=== PATIENT | female | born 1985 | race Caucasian/White ===

== ENCOUNTER 2017-06-20 19:12 | Emergency (ER) | payer SELFPAY ==
--- NOTE | 2017-06-20 20:14 | XRAY Preliminary Report ---
Exam: XR Chest 2 View PA/LAT IMPRESSION: Normal 2-view chest radiography. [facility] SITE ID: [id number]
[2017-06-20] MEDS ORDERED: KETOROLAC 60 MG/2 ML VIAL IM STA (20:34)
[2017-06-20] MEDS ORDERED: DEXAMETHASONE 10 MG/ML VIAL PO STA (20:35)
[2017-06-20] MEDS ORDERED: ALBUTEROL NEB 2.5 MG/3 ML INH STA (20:35)
--- NOTE | 2017-06-20 20:40 | ED Physician Documentation ---
History of Present Illness - Stated complaint Stated Complaint: CHEST PX/FEVER - Chief complaint Chief Complaint: General - History obtained from History obtained from: Patient - History of Present Illness Timing: How many days ago (3) Pain level max: 5 Pain level now: 5 Improved by: nothing Worsened by: nothing - Additonal information Additional information: Patient is a 32-year-old female who presents to the emergency department with a complaint of subjective fever at home and a feeling of tightness in her chest. No rhinorrhea, no congestion, no coughing. No vomiting. No diarrhea. No abdominal pain. Has not taken anything at home. 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 - Present Medications Home Medications: Ambulatory Orders Medication Instructions Recorded Confirmed Albuterol Sulf [Ventolin Hfa 2 puffs INH Q4HR PRN #1 inhaler 06/20/17 Inhaler] Ondansetron HCl [Zofran] 06/20/17 - Allergies Allergies/Adverse Reactions: Allergies Allergy/AdvReac Type Severity Reaction Status Date / Time codeine AdvReac Nausea Verified 06/20/17 19:24 morphine AdvReac Dizziness Verified 06/20/17 19:24 - Social History Does the pt smoke?: No Smoking Status: Never smoker Does the pt drink ETOH?: No Does the pt have substance abuse?: No - Immunizations Immunizations are current?: Yes - POLST Patient has POLST: No PD ED PE NORMAL - Vitals Vital signs reviewed: Yes - General General: Alert and oriented X 3, No acute distress, Well developed/nourished - HEENT HEENT: Atraumatic, PERRL, Ears normal, Moist mucous membranes, Other (Mild posterior oropharyngeal erythema without tonsillar exudates. Uvula midline. No trismus.) - Neck Neck: Supple, no meningeal sign, No adenopathy - Cardiac Cardiac: RRR, No murmur, No gallop, No rub, Strong equal pulses - Respiratory Respiratory: No respiratory distress, Other (Mildly diminished breath sounds bilaterally) - Abdomen Abdomen: Soft, Non tender, Non distended - Back Back: No CVA TTP, No spinal TTP - Derm Derm: Warm and dry, No rash - Neuro Neuro: Alert and oriented X 3 - Psych Psych: Normal mood, Normal affect Results - Vitals Vitals: Vital Signs - 24 hr 06/20/17 06/20/17 06/20/17 19:21 20:26 20:50 Temperature 36.4 C L 36.4 C L Heart Rate 112 H 86 86 Respiratory 20 14 16 Rate Blood Pressure 118/71 112/74 O2 Saturation 99 95 06/20/17 21:35 Temperature 36.5 C Heart Rate 85 Respiratory 13 Rate Blood Pressure 121/72 O2 Saturation 96 Oxygen O2 Source Room air - EKG (time done) 2019 Rate: Rate (enter#) (96) Rhythm: NSR Hatley: Normal Intervals: Normal IN QRS: Normal Ischemia: Non specific changes - Labs Labs: Laboratory Tests 06/20/17 20:52 Group A Strep Rapid Negative - Rads (name of study) cxr Radiology: Prelim report reviewed, EMP read contemporaneously, See rad report ( normal) PD MEDICAL DECISION MAKING - ED course Complexity details: reviewed results, re-evaluated patient, considered differential, d/w patient ED course: Patient is a 32-year-old female who presents to the emergency department with fever and chest tightness. Normal EKG. Normal x-ray. No evidence of pericarditis, myocarditis. Normal rapid strep. Did have a mild sore throat and mild erythema on exam. She also feels better after nebulizer treatment and dexamethasone. We will trial her on inhalers for home and follow-up with her doctor for further evaluation and care. Patient counseled regarding signs and symptoms for which I believe and urgent re-evaluation would be necessary. Patient with good understanding of and agreement to plan and is comfortable going home at this time This document was made in part using voice recognition software. While efforts are made to proofread this document, sound alike and grammatical errors may occur. Departure - Departure Disposition: 01 Home, Self Care Clinical Impression: Viral syndrome Condition: Good Instructions: ED Viral Syndrome Follow-Up: Young,Bev L, PA-C [Primary Care Provider] - Within 1 week Prescriptions: Albuterol Sulf [Ventolin Hfa Inhaler] 2 puffs INH Q4HR PRN #1 inhaler PRN Reason: Wheezing Comments: Return if you worsen. Drink plenty of fluids and rest. Discharge Date/Time: 06/20/17 21:39
--- NOTE | 2017-06-20 20:44 | XRAY Report ---
EXAM: CHEST RADIOGRAPHY EXAM DATE: 06/20/2017 07:49 p.m. CLINICAL HISTORY: Fever, chest pain. COMPARISON: None. TECHNIQUE: 2 views. FINDINGS: Lungs/Pleura: No focal opacities evident. No pleural effusion. No pneumothorax. Normal volumes. Mediastinum: Heart and mediastinal contours are unremarkable. Other: None. IMPRESSION: Normal 2-view chest radiography. [facility] Referring Provider Line: [phone] SITE ID: [id number]
[2017-06-20] MEDS ORDERED: ALBUTEROL NEB 2.5 MG/3 ML INH ONE (20:45)
[2017-06-20] MEDS ORDERED: CHERRY SYRUP 10 ML UDC PO ONE (20:46)
[2017-06-20] MEDS ORDERED: KETOROLAC 60 MG/2 ML VIAL ONE (20:46)
[2017-06-20] MEDS ORDERED: DEXAMETHASONE 10 MG/ML VIAL ONE (20:46)
[2017-06-20] MEDS ORDERED: ACETAMINOPHEN 325 MG TABLET PO STA (20:59)
[2017-06-20] MEDS ORDERED: ONDANSETRON ODT 4 MG TABLET TL STA (21:00)
[2017-06-20] MEDS ORDERED: ACETAMINOPHEN 325 MG TABLET PO ONE (21:07)
[2017-06-20] MEDS ORDERED: ONDANSETRON ODT 4 MG TABLET ONE (21:07)
[2017-06-20 21:12] LABS: RAPID STREP SCREEN REAGENT QC YELLOW (YELLOW)
[2017-06-20 21:36] VITALS: BP 121/72
== END 2017-06-20 21:39 | disposition home or self-care (01) ==
LOC: ED 19:12
DX: B34.9 Viral infection, unspecified (principal)
CPT/HCPCS: 71020; 87070; 87430; 93005; 94640; 96372; 99283; A9270; J7613; Q0162

== ENCOUNTER 2017-11-06 22:38 | Emergency (ER) | payer SELFPAY ==
[2017-11-06 22:51] VITALS: BP 149/99
[2017-11-06] MEDS ORDERED: SILVER SULFADIAZINE CREAM 25 GM TUBE TOP STA (23:31)
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
[2017-11-06] MEDS ORDERED: ONDANSETRON ODT 4 MG Prepack 2 TL STA (23:40)
[2017-11-06] MEDS ORDERED: oxyCODONE/ACET 5/325 Prepack 4 PO STA (23:40)
== END 2017-11-07 00:05 | disposition home or self-care (01) ==
LOC: ED 22:38
DX: T23.152A Burn of first degree of left palm, initial encounter (principal); T31.0 Burns involving less than 10% of body surface; X19.XXXA Contact with other heat and hot substances, initial encounter
CPT/HCPCS: 99282; 99283; A9270

== ENCOUNTER 2018-04-04 22:54 | Emergency (ER) | payer SELFPAY ==
[2018-04-04 23:07] VITALS: BP 148/88
--- NOTE | 2018-04-04 23:16 | ED Physician Documentation ---
PD HPI LOWER EXT INJURY - Stated complaint Stated Complaint: LT LEG PX - Chief complaint Chief Complaint: Ext Problem - History obtained from History obtained from: Patient - History of Present Illness PD HPI LOW EXT INJURY LOCATION: Left, Lower leg, Ankle Where injury occurred: Home Timing - onset: Today Timing - details: Gradual onset Similar symptoms before: Has not had sx before Recently seen: Not recently seen - Additional information Additional information: patient is a 33 year old female with no significant past medical history who is presenting to the emergency department for bumps on the front of her leg, just above her ankle. Patient states that she wanted to make sure it was not a blood clot. Patient denies an trauma, shortness of breath or chest pain. 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 - Present Medications Home Medications: Ambulatory Orders Medication Instructions Recorded Confirmed No Known Home Medications [No 04/04/18 04/04/18 Known Home Medications] - Allergies Allergies/Adverse Reactions: Allergies Allergy/AdvReac Type Severity Reaction Status Date / Time codeine AdvReac Nausea Verified 04/04/18 23:08 morphine AdvReac Dizziness Verified 04/04/18 23:08 - Social History Does the pt smoke?: No Smoking Status: Never smoker Does the pt drink ETOH?: No Does the pt have substance abuse?: No - Immunizations Immunizations are current?: Yes - POLST Patient has POLST: No PD ED PE NORMAL - Vitals Vital signs reviewed: Yes - General General: Alert and oriented X 3, No acute distress, Well developed/nourished - HEENT HEENT: Atraumatic - Neck Neck: No JVD - Cardiac Cardiac: RRR - Respiratory Respiratory: No respiratory distress - Abdomen Abdomen: Non distended - Derm Derm: Normal color, No rash - Neuro Neuro: Alert and oriented X 3 Eye Opening: Spontaneous - Psych Psych: Normal mood PD ED PE EXPANDED - Extremities Extremities: Left leg (non mobile nodules on distal anterior leg), Pedal Pulses Present. No: Pedal edema bilateral, Right calf TTP/cord, Left calf TTP/cord Results - Vitals Vitals: Vital Signs - 24 hr 04/04/18 22:56 Temperature 36.9 C Heart Rate 103 H Respiratory 18 Rate Blood Pressure 148/88 H O2 Saturation 100 Oxygen O2 Source Room air PD MEDICAL DECISION MAKING - ED course Complexity details: reviewed old records, considered differential, d/w patient ED course: Patient was seen and examined at bedside. patient was well appearing and in no distress. patients nodules were viewed under ultrasound. they were non vascular. there was no sign of infection. patient's original tachycardia resolved. patient required no testing at this time and was stable for discharge with outpatient follow up. - Sepsis Event Vital Signs: Vital Signs - 24 hr 04/04/18 22:56 Temperature 36.9 C Heart Rate 103 H Respiratory 18 Rate Blood Pressure 148/88 H O2 Saturation 100 Oxygen O2 Source Room air Departure - Departure Disposition: 01 Home, Self Care Clinical Impression: Cyst Condition: Good Instructions: Leg Low Back Pain Poss Causes Follow-Up: primary,care provider [Other] - Within 1 week Comments: Your ultrasound today was well appearing. the cystic regions have no blood flow and appear benign in nature. You should monitor them for the next few days. You should follow up with your doctor next week if the symptoms persist. You may return to the emergency department at any time for new, worsening or uncontrollable symptoms. Discharge Date/Time: 04/04/18 23:22
== END 2018-04-04 23:22 | disposition home or self-care (01) ==
LOC: ED 22:54
DX: L72.9 Follicular cyst of the skin and subcutaneous tissue, unspecified (principal)
CPT/HCPCS: 99282; 99283

== ENCOUNTER 2020-06-24 18:19 | Outpatient (CLI) | payer OTHER | END 2020-06-24 18:20 | disposition home or self-care (01) | LOC: COV 18:19 | PROVIDERS: ATTEND Family Medicine | DX: R50.9 Fever, unspecified (principal); M79.10 Myalgia, unspecified site; R53.83 Other fatigue; J02.9 Acute pharyngitis, unspecified; R19.7 Diarrhea, unspecified; R09.81 Nasal congestion; Z20.828 Contact with and (suspected) exposure to other viral communicable diseases ==

== ENCOUNTER 2021-08-03 22:51 | Emergency (ER) | payer OTHER ==
--- NOTE | 2021-08-03 23:19 | ED Physician Documentation ---
PD HPI URI - Stated complaint Stated Complaint: HEADACHE/CHILLS/SORE THROAT - Chief complaint Chief Complaint: Heent - History obtained from History obtained from: Patient - History of Present Illness Timing - onset: Today (this morning) Timing duration: Days (1) Timing details: Abrupt onset, Still present Associated symptoms: Fever, Chills, Sore throat, Dry cough Contributing factors: No: Sick contact, Travel, Immunocompromised, Unimmunized (has had prior COVID vaccines.) Similar symptoms before: Has not had sx before Recently seen: Not recently seen Review of Systems Constitutional: reports: Fever, Chills, Myalgias Eyes: denies: Photophobia Nose: reports: Congestion. denies: Rhinorrhea / runny nose Throat: reports: Sore throat Cardiac: denies: Chest pain / pressure Respiratory: reports: Cough (mild). denies: Dyspnea GI: reports: Nausea (improved with Zofran at home.). 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, Other - Present Medications Home Medications: Ambulatory Orders Medication Instructions Recorded Confirmed Ondansetron Odt [Zofran] 4 mg TL Q6H PRN #10 tablet 08/03/21 Oxycodone HCl/Acetaminophen 1 each PO Q6H PRN #10 tablet 08/03/21 [Percocet 5-325 mg Tablet] dexAMETHasone [Decadron] 4 mg PO DAILY #5 tablet 08/03/21 - Allergies Allergies/Adverse Reactions: Allergies Allergy/AdvReac Type Severity Reaction Status Date / Time codeine AdvReac Nausea Verified 08/03/21 23:02 morphine AdvReac Dizziness Verified 08/03/21 23:02 - Social History Does the pt smoke?: No Smoking Status: Never smoker Does the pt drink ETOH?: No Does the pt have substance abuse?: No - Immunizations Immunizations are current?: Yes - POLST Patient has POLST: No PD ED PE NORMAL - Vitals Vital signs reviewed: Yes - General General: Alert and oriented X 3, Well developed/nourished - HEENT HEENT: Moist mucous membranes, Pharynx benign - Neck Neck: Supple, no meningeal sign, No adenopathy - Cardiac Cardiac: RRR, No murmur - Respiratory Respiratory: Clear bilaterally - Abdomen Abdomen: Soft, Non tender - Derm Derm: Normal color, Warm and dry, No rash Results - Vitals Vitals: Vital Signs - 24 hr 08/03/21 08/04/21 22:55 00:23 Temperature 36.7 C 36.9 C Heart Rate 88 84 Respiratory 16 16 Rate Blood Pressure 139/89 H 116/79 O2 Saturation 97 100 Oxygen O2 Source Room air PD MEDICAL DECISION MAKING - ED course Complexity details: considered differential (seems viral URI. She is concerned about COVID. Can get test. She states does not feel like migraine. Does not clinically seem meningitic. ), d/w patient Departure - Departure Disposition: 01 Home, Self Care Clinical Impression: Upper respiratory infection Qualifiers: URI type: unspecified URI Qualified Code(s): J06.9 - Acute upper respiratory infection, unspecified Condition: Stable Record reviewed to determine appropriate education?: Yes Instructions: ED Upper Resp Infec No Abx Tx Prescriptions: dexAMETHasone [Decadron] 4 mg PO DAILY #5 tablet Oxycodone HCl/Acetaminophen [Percocet 5-325 mg Tablet] 1 each PO Q6H PRN #10 tablet PRN Reason: pain Ondansetron Odt [Zofran] 4 mg TL Q6H PRN #10 tablet PRN Reason: Nausea / Vomiting Comments: Sounds likely to be a viral illness. Your Covid test should result in a day or 2. Stay well-hydrated. Tylenol if needed for fevers or pains. For your headache in general pains, you could use Decadron steroid daily for the next few days. This can be useful for migraine type headaches as well. Ondansetron if needed for nausea. Add Percocet if needed for worse headache. Your scripts were transmitted to [facility] in [place]. Recheck if not improved well over the next several days or if worsening generally. You have a Covid test pending. You need to self quarantine until the result is done and negative. Do not leave your house. Do not get near anybody. The results should be done in 48 to 72 hours, but sometimes longer. We will call with a positive result, the fastest way to get a negative result for confirmation though is to go to the hospital website at [email or web address], click on the my [facility] tab and sign up for the patient portal. If any friends or family get sick and would like to have a Covid test done, but do not have signs or symptoms that would necessitate being hospitalized, we encourage testing through our coronavirus swabbing station, call [phone] to schedule an appointment. Discharge Date/Time: 08/04/21 00:23
[2021-08-03] MEDS ORDERED: oxyCODONE/ACET 5/325 Prepack 4 PO STA (23:41)
[2021-08-03] MEDS ORDERED: DEXAMETHASONE 10 MG/ML VIAL PO STA (23:41)
[2021-08-03] MEDS ORDERED: CHERRY SYRUP 10 ML UDC PO ONE (23:41)
[2021-08-03] MEDS ORDERED: KETOROLAC 30 MG/ML VIAL IM STA (23:41)
[2021-08-04 00:24] VITALS: BP 116/79
== END 2021-08-04 00:23 | disposition home or self-care (01) ==
LOC: ED 22:51
DX: J06.9 Acute upper respiratory infection, unspecified (principal); Z20.822 Contact with and (suspected) exposure to COVID-19; R51.9 Headache, unspecified; R11.0 Nausea
CPT/HCPCS: 87635; 96372; 99283; A9270

== ENCOUNTER 2022-11-17 01:26 | Outpatient (CLI) | payer OTHER | END 2022-11-17 01:27 | disposition short-term general hospital (02) | LOC: EMS 01:26 | DX: R11.2 Nausea with vomiting, unspecified (principal); R05.9 Cough, unspecified; R51.9 Headache, unspecified; R42 Dizziness and giddiness | CPT/HCPCS: A0425; A0427 ==